=== PATIENT | female | born 1995 | race Caucasian/White ===

== ENCOUNTER 2019-08-12 15:39 | Emergency (ER) | payer OTHER, SELFPAY ==
[2019-08-12 15:50] VITALS: BP 136/73; PULSE 117; RESP 20; TEMP 36.5; O2SAT 100
--- NOTE | 2019-08-12 15:55 | ED.GENADULT ---
HPI - General Adult General Chief complaint: Wound/Laceration Stated complaint: Cyst in Buttcrack Time Seen by Provider: 08/12/19 15:56 Source: patient and RN notes reviewed Mode of arrival: ambulatory Limitations: no limitations History of Present Illness HPI narrative: 23-year-old female presents with complaints of a cyst to buttock with tenderness and swelling for the past 4-5 days. Tylenol (last 08/11/19) with no relief. Anton says tenderness increased over the last 48 hours making it uncomfortable to sit. Area is tender to touch. No drainage. Anton says she a history of MRSA skin abscess in 2018 to LT thigh and groin. No fever or chills. No diarrhea, abdominal pain, nausea, and vomiting. Tolerating po intake well. Denies headaches, weakness, fatigue, myalgia. Denies chest pain or dyspnea. Denies cough, rhinorrhea, congestion, and sore throat. Denies recent traveling. Denies concern for COVID-19 or exposures been home since [id number] order except for essential household needs and return home. Remains active. Immunizations up-to-date. Anton denies being , LMP 1.5 weeks ago (says it was 08/02/19). Some parts of this dictation were generated by voice recognition software and may contain typographical and/or grammatical inaccuracies. Related Data Allergies Allergy/AdvReac Type Severity Reaction Status Date / Time morphine Allergy Hives Verified 08/12/19 16:46 Review of Systems Review of Systems: Narrative: CONSTITUTIONAL: Denies fever, chills, sweats. EYES: Denies visual changes, redness, discharge. ENT: Denies rhinorrhea, congestion, sore throat, otalgia. CARDIOVASCULAR: Denies chest pain, palpitations, edema. RESPIRATORY: Denies dyspnea, wheezing, cough. GASTROINTESTINAL: Denies abdominal pain, nausea, vomiting, diarrhea. GENITOURINARY: Denies dysuria, hematuria, abnormal discharge. SKIN: Denies rash or itching. Complains of a cyst to buttock with tenderness, and swelling. Denies drainage or open area. MUSCULOSKELETAL: Denies acute back pain, joint pain, or myalgia. NEUROLOGIC: Denies numbness or focal weakness. PSYCHIATRIC: Denies anxiety or depression. All systems reviewed & are unremarkable except as noted in HPI and below. PMFSH Past Medical History Medical History (Updated 08/12/19 @ 16:15 by LOUIE Middleton) Arm fracture LT arm compound fracture MRSA (methicillin resistant Staphylococcus aureus) Surgical History Surgical History (Updated 08/12/19 @ 16:15 by LOUIE Middleton) History of adenoidectomy History of neck surgery History of tonsillectomy Family History Family History (Updated 08/12/19 @ 16:16 by LOUIE Middleton) Father , Father at age 48 from [place] per Anton Acute myocardial infarction Grandparent Diabetes mellitus Social History Social History (Updated 08/12/19 @ 16:17 by LOUIE Middleton) Smoking status: Current every day smoker Tobacco type: cigarettes and e-cigarettes Second hand tobacco smoke exposure: Yes Alcohol intake: current Substance use: current Substance use type: marijuana Living arrangements: with family Occupation/Education: occupation 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 Please see nursing chart for further information. There is no relevant family history pertinent to the presenting complaint. Exam Narrative: Exam Narrative: GENERAL: This is a well-nourished, well-developed patient, in no apparent distress. Talking in full sentences without deficit and ambulate with steady gait without dyspnea. HEAD: normocephalic, atraumatic. EYES: PERRL. Sclera clear/white. Vision is grossly intact. NECK: Neck supple, non-tender without lymphadenopathy, masses or thyromegaly. CARDIOVASCULAR: Reg
[2019-08-12 16:22] VITALS: PULSE 102
== END 2019-08-12 16:22 | disposition home or self-care (01) ==
PROVIDERS: Emergency Provider Nurse Practitioner Family
DX: L05.91 Pilonidal cyst without abscess (principal); F17.210 Nicotine dependence, cigarettes, uncomplicated; Z86.14 Personal history of Methicillin resistant Staphylococcus aureus infection
CPT/HCPCS: 99213; G0463